=== PATIENT | female | born 1950 | race American Indian/Alaskan Native ===

== ENCOUNTER 2019-06-02 07:22 | Inpatient (IN) | payer MEDICARE ==
[2019-06-02 08:32] LABS: Basophils % (Auto) 0.3 % (0.0-1.8); Eosinophils # (Auto) 0.1 K/mm3 (0.0-0.4); Eosinophils % (Auto) 2.5 % (0.0-4.3); Hematocrit 37.1 % (30.3-42.9); Hemoglobin 12.4 gm/dl (10.1-14.3); Lymphocytes # (Auto) 1.2 K/mm3 (1.2-5.4); Lymphocytes % (Auto) 28.9 % (13.4-35.0); Mean Corpuscular HGB Conc 33 % (30-34); Mean Corpuscular Volume 89 fl (79-97); Monocytes # (Auto) 0.6 K/mm3 (0.0-0.8); Platelet Count 232 K/mm3 (140-440); Red Blood Count 4.18 M/mm3 (3.65-5.03); Red Cell Distribution Width 13.4 % (13.2-15.2)
--- NOTE | 2019-06-02 08:34 | Cat Scan Report ---
CT head/brain wo con INDICATION: neuro deficits <6hrs or sx present upon awakening. TECHNIQUE: Routine CT head without contrast. All CT scans at this location are performed using CT dos e reduction for ALARA by means of automated exposure control. COMPARISON: None. FINDINGS: BRAIN / INTRACRANIAL CONTENTS: Mild generalized volume loss. There is encephalomalacia involving the left frontal lobe with associated ex vacuo dilation of the frontal horn of the left lateral ventricle . There is moderate periventricular and deep cerebral white matter low-attenuation, nonspecific but s uggestive of chronic microvascular ischemic change. No definite acute ischemic change identified, tho ugh assessment is slightly suboptimal given the chronic changes. There is no evidence of hemorrhage, mass effect, or midline shift. ORBITS: No significant abnormality of visualized orbits. SINUSES / MASTOIDS: No significant abnormality of visualized sinuses and mastoid air cells. ADDITIONAL FINDINGS: None. IMPRESSION: 1. Encephalomalacia involving the left frontal lobe, and moderate chronic microvascular ischemic [place]. No definite acute intracranial abnormality identified on noncontrast CT of the brain, though asse ssment is slightly degraded by chronic changes. MRI would be more sensitive for the detection of acut e stroke if clinically warranted. Signer Name: Ute Minaya MD Signed: 06/02/2019 8:29 AM Workstation Name: [email or web address]
--- NOTE | 2019-06-02 08:37 | Emergency Department Report ---
ED Neuro Deficit HPI - General Chief Complaint: Seizure Stated Complaint: SEIZURE Time Seen by Provider: 06/02/19 08:17 Source: patient, family Mode of arrival: Ambulatory Limitations: No Limitations - History of Present Illness Initial Comments: 68-year-old -Welsh female patient with history of hypertension, diabetes, CVA (2016), seizure disorder, HLD, and depression presents complaints of episode of aphasia and right-sided face twitching morning. She states it started around 6:30 AM and the episode lasted for about 5 minutes. She denies any current vision changes, dizziness, headache, chest pain, shortness of breath, numbness/tingling/weakness. Patient does have a chronic speech deficit and mild right-sided weakness due to her prior stroke. She denies any blood thinners or recent head traumas. Patient also complains of right hand dog bite that occurred yesterday. -: Sudden Location: speech, right face History of same: Yes Place: home Severity: severe Worsens With: none On Anticoagulants: No Context: sudden onset Associated Symptoms: denies other symptoms Treatments Prior to Arrival: none - Related Data Home Medications: Home Medications Medication Instructions Recorded Confirmed Last Taken ALBUTEROL Inhaler (OR & NICU) 2 puff IH QID PRN 06/02/19 06/02/19 Unknown [ProAir HFA Inhaler] AtorvaSTATin [Lipitor] 80 mg PO QHS 06/02/19 06/02/19 06/01/19 Escitalopram [Lexapro] 20 mg PO DAILY 06/02/19 06/02/19 Unknown Losartan [Cozaar] 25 mg PO QDAY 06/02/19 06/02/19 Unknown Meloxicam [Mobic] 15 mg PO DAILY 06/02/19 06/02/19 Unknown carvediloL [Coreg] 6.25 mg PO BID 06/02/19 06/02/19 Unknown Previous Rx's Medication Instructions Recorded Last Taken Type Amoxicillin/K Clav Tab [Augmentin 1 each PO Q12HR #14 tablet 06/03/19 Unknown Rx 875MG TAB] Aspirin EC [Halfprin EC] 81 mg PO QDAY tablet 06/03/19 Unknown Rx levETIRAcetam [Keppra TAB] 750 mg PO BID #180 tablet 06/03/19 Unknown Rx Allergies/Adverse Reactions: Allergies Allergy/AdvReac Type Severity Reaction Status Date / Time No Known Allergies Allergy Unverified 06/02/19 07:30 ED Review of Systems ROS: Stated complaint: SEIZURE Other details as noted in HPI Comment: All other systems reviewed and negative Constitutional: denies: chills, fever Eyes: denies: eye pain, vision change ENT: denies: throat pain Respiratory: denies: cough, shortness of breath, wheezing Cardiovascular: denies: chest pain, palpitations Endocrine: no symptoms reported Gastrointestinal: denies: abdominal pain, nausea, diarrhea Genitourinary: denies: dysuria, frequency, hematuria Musculoskeletal: denies: back pain, joint swelling, arthralgia Skin: denies: rash, lesions Neurological: as per HPI Psychiatric: as per HPI ED Past Medical Hx - Past Medical History Previous Medical History?: Yes Hx Hypertension: Yes Hx CVA: Yes Hx Diabetes: Yes Hx Seizures: Yes - Surgical History Past Surgical History?: No - Social History Smoking Status: Never Smoker - Medications Home Medications: Home Medications Medication Instructions Recorded Confirmed Last Taken Type ALBUTEROL Inhaler (OR & NICU) 2 puff IH QID PRN 06/02/19 06/02/19 Unknown History [ProAir HFA Inhaler] AtorvaSTATin [Lipitor] 80 mg PO QHS 06/02/19 06/02/19 06/01/19 History Escitalopram [Lexapro] 20 mg PO DAILY 06/02/19 06/02/19 Unknown History Losartan [Cozaar] 25 mg PO QDAY 06/02/19 06/02/19 Unknown History Meloxicam [Mobic] 15 mg PO DAILY 06/02/19 06/02/19 Unknown History carvediloL [Coreg] 6.25 mg PO BID 06/02/19 06/02/19 Unknown History Amoxicillin/K Clav Tab [Augmentin 1 each PO Q12HR #14 tablet 06/03/19 Unknown Rx 875MG TAB] Aspirin EC [Halfprin EC] 81 mg PO QDAY tablet 06/03/19 Unknown Rx levETIRAcetam [Keppra TAB] 750 mg PO BID #180 tablet 06/03/19 Unknown Rx ED Neuro Physical Exam - General Limitations: No Limitations General appearance: alert, in no apparent distress Suspected Stroke: Yes - Head Head exam: Present: atraumatic, normocephalic - Eye Eye exam: Present: normal appearance, PERRL, EOMI. Absent: scleral icterus - ENT ENT exam: Present: normal exam - Neck Neck exam: Present: normal inspection - Respiratory Respiratory exam: Present: normal lung sounds bilaterally. Absent: respiratory distress - Cardiovascular Cardiovascular Exam: Present: regular rate - GI/Abdominal GI/Abdominal exam: Present: soft, normal bowel sounds. Absent: distended, tenderness, guarding, rebound - Extremities Exam Extremities exam: Present: normal inspection - Back Exam Back exam: Present: normal inspection, full ROM - Neurological Exam Neurological exam: Present: alert, oriented X3. Absent: motor sensory deficit - NIHSS Assessment Interval: Baseline 1a. Level of Consciousness: alert/keenly responsive 1b. LOC Questions: answers both correctly 1c. LOC Commands: performs tasks correctly 2. Best Gaze: normal 3. Visual: no visual loss 4. Facial Palsy: normal symmetrical movement 5b. Motor Arm Right: no drift 5a. Motor Arm Left: no drift 6a. Motor Leg Left: no drift 6b. Motor Leg Right: no drift 7. Limb Ataxia: absent 8. Sensory: normal 9. Best Language: mild/moderate aphasia 10. Dysarthria: normal 11. Extinction/Inattention: no abnormality Total Score: 1 Stroke Severity: Minor Stroke - Psychiatric Psychiatric exam: Present: normal affect, normal mood - Skin Skin exam: Present: warm, dry, intact, normal color. Absent: rash ED Course Vital Signs 06/02/19 06/02/19 06/02/19 07:35 10:00 10:20 Temperature 98.1 F Pulse Rate 73 70 68 Respiratory 16 19 16 Rate Blood Pressure 166/84 149/66 Blood Pressure 165/88 [Right] O2 Sat by Pulse 98 97 98 Oximetry 06/02/19 06/02/19 06/02/19 10:28 10:30 10:40 Temperature Pulse Rate 82 68 66 Respiratory 14 17 14 Rate Blood Pressure 156/69 156/69 Blood Pressure 149/66 [Right] O2 Sat by Pulse 98 97 Oximetry - Lab Data Result diagrams: 06/02/19 08:12 06/02/19 08:12 Lab Results 06/02/19 06/02/19 06/02/19 Range/Units 07:44 08:12 08:12 WBC 4.3 L (4.5-11.0) K/mm3 RBC 4.18 (3.65-5.03) M/mm3 Hgb 12.4 (10.1-14.3) gm/dl Hct 37.1 (30.3-42.9) % MCV 89 (79-97) fl MCH 30 (28-32) pg MCHC 33 (30-34) % RDW 13.4 (13.2-15.2) % Plt Count 232 (140-440) K/mm3 Lymph % (Auto) 28.9 (13.4-35.0) % [place] % (Auto) 15.0 H (0.0-7.3) % Eos % (Auto) 2.5 (0.0-4.3) % Baso % (Auto) 0.3 (0.0-1.8) % Lymph # 1.2 (1.2-5.4) K/mm3 [place] # 0.6 (0.0-0.8) K/mm3 Eos # 0.1 (0.0-0.4) K/mm3 Baso # 0.0 (0.0-0.1) K/mm3 Seg Neutrophils % 53.3 (40.0-70.0) % Seg Neutrophils # 2.3 (1.8-7.7) K/mm3 PT 12.2 (12.2-14.9) Sec. INR 0.91 (0.87-1.13) APTT 28.4 (24.2-36.6) Sec. Thrombin Time (15.1-19.6) Sec. Sodium (137-145) mmol/L Potassium (3.6-5.0) mmol/L Chloride (98-107) mmol/L Carbon Dioxide (22-30) mmol/L Anion Gap mmol/L BUN (7-17) mg/dL Creatinine (0.7-1.2) mg/dL Estimated GFR ml/min BUN/Creatinine Ratio % Glucose (65-100) mg/dL POC Glucose 123 H (70-105) Calcium (8.4-10.2) mg/dL Magnesium (1.7-2.3) mg/dL Troponin T (0.00-0.029) ng/mL 06/02/19 06/02/19 06/02/19 Range/Units 08:12 08:12 08:21 WBC (4.5-11.0) K/mm3 RBC (3.65-5.03) M/mm3 Hgb (10.1-14.3) gm/dl Hct (30.3-42.9) % MCV (79-97) fl MCH (28-32) pg MCHC (30-34) % RDW (13.2-15.2) % Plt Count (140-440) K/mm3 Lymph % (Auto) (13.4-35.0) % [place] % (Auto) (0.0-7.3) % Eos % (Auto) (0.0-4.3) % Baso % (Auto) (0.0-1.8) % Lymph # (1.2-5.4) K/mm3 [place] # (0.0-0.8) K/mm3 Eos # (0.0-0.4) K/mm3 Baso # (0.0-0.1) K/mm3 Seg Neutrophils % (40.0-70.0) % Seg Neutrophils # (1.8-7.7) K/mm3 PT (12.2-14.9) Sec. INR (0.87-1.13) APTT (24.2-36.6) Sec. Thrombin Time 17.1 (15.1-19.6) Sec. Sodium 138 (137-145) mmol/L Potassium 4.4 (3.6-5.0) mmol/L Chloride 103.7 (98-107) mmol/L Carbon Dioxide 24 (22-30) mmol/L Anion Gap 15 mmol/L BUN 30 H (7-17) mg/dL Creatinine 1.2 (0.7-1.2) mg/dL Estimated GFR 45 ml/min BUN/Creatinine Ratio 25 % Glucose 138 H (65-100) mg/dL POC Glucose (70-105) Calcium 9.2 (8.4-10.2) mg/dL Magnesium 1.90 (1.7-2.3) mg/dL Troponin T < 0.010 (0.00-0.029) ng/mL - Radiology Data Radiology results: report reviewed CT head/brain wo con INDICATION: neuro deficits <6hrs or sx present upon awakening. TECHNIQUE: Routine CT head without contrast. All CT scans at this location are performed using CT dose reduction for ALARA by means of automated exposure control. COMPARISON: None. FINDINGS: BRAIN / INTRACRANIAL CONTENTS: Mild generalized volume loss. There is encephalomalacia involving the left frontal lobe with associated ex vacuo dilation of the frontal horn of the left lateral ventricle. There is moderate periventricular and deep cerebral white matter low-attenuation, nonspecific but suggestive of chronic microvascular ischemic change. No definite acute ischemic change identified, though assessment is slightly suboptimal given the chronic changes. There is no evidence of hemorrhage, mass effect, or midline shift. ORBITS: No significant abnormality of visualized orbits. SINUSES / MASTOIDS: No significant abnormality of visualized sinuses and mastoid air cells. ADDITIONAL FINDINGS: None. IMPRESSION: 1. Encephalomalacia involving the left frontal lobe, and moderate chronic m icrovascular ischemic change. No definite acute intracranial abnormality identified on noncontrast CT of the brain, though assessment is slightly degraded by chronic changes. MRI would be more sensitive for the detection of acute stroke if clinically warranted. Signer Name: Ute Minaya MD Signed: 06/02/2019 8:29 AM Workstation Name: [id number] - Medical Decision Making 68-year-old -Welsh female patient with history of CVA and chronic speech deficit due to her stroke resents for a five-minute episode of inability to speak and right facial twitching this morning. Labs are without acute findings. Neuro exam is normal here in ED. CT head does not show any acute findings. We suffered from a TIA. Patient to be admitted to hospital medicine for further evaluation. - Core Measures Measure Exclusions: not indicated - Thrombolytic Inclusion/Exclusion Thrombolytic Exclusion Criteria: Symptom Onset > 3 Hours Thrombolytic Inclusion Criteria: NIH Stroke Scale Deficit, Negative CT Scan for ICH Thrombolytic Contraindications: Rapidily Improving s/s Critical Care Time: Yes Critical care time in (mins) excluding proc time.: 32 Critical care attestation.: If time is entered above; I have spent that time in minutes in the direct care of this critically ill patient, excluding procedure time. ED Disposition Clinical Impression: TIA (transient ischemic attack) Disposition: -09 OP ADMIT IP TO THIS HOSP Is pt being admited?: Yes Does the pt Need Aspirin: No Condition: Stable
[2019-06-02 08:42] LABS: INR 0.91 (0.87-1.13)
[2019-06-02] MEDS ORDERED: TETANUS,DIPH,PERTUSS(ACELL) VACCINE 0.5 ML SYRINGE IM ONE (08:42)
[2019-06-02 08:43] LABS: BUN/Creatinine Ratio 25; Blood Urea Nitrogen 30 mg/dL (7-17); Calcium 9.2 mg/dL (8.4-10.2); Hemolysis Index 0; Partial Thromboplastin Time 28.4 Sec. (24.2-36.6)
[2019-06-02] MEDS: AMOXICILLIN/K CLAV 875/125MG TAB PO SCH ×3 (09:08→22:16)
--- NOTE | 2019-06-02 10:38 | History and Physical Report ---
History of Present Illness Date of admission: 06/02/19 08:53 Chief complaint: She could not speak and she was twitching History of present illness: 68-year-old woman with history of hypertension diabetes CVA seizure disorder hyperlipidemia and depression who presents to the hospital with episodes of complete aphasia and right-sided twitching this morning. Started around 6:30 in the morning and lasted approximately 5 minutes. Has since resolved and has not come back. She does have a history of previous stroke with chronic speech deficit and very mild right-sided weakness. -Of note the patient has a history of seizures, per the family they believe it was a seizure. She was supposed to be on Keppra at home but has not taking it in many months. Past medical history; hypertension, diabetes, CVA, seizure, hyperlipidemia, depression, Past surgical history, denies major surgeries Social history, never smoker, denies illicit drugs or alcohol abuse Family history; stroke Medications and Allergies Allergies Allergy/AdvReac Type Severity Reaction Status Date / Time No Known Allergies Allergy Unverified 06/02/19 07:30 Home Medications Medication Instructions Recorded Confirmed Last Taken Type ALBUTEROL Inhaler (OR & NICU) 2 puff IH QID PRN 06/02/19 06/02/19 Unknown History [ProAir HFA Inhaler] AtorvaSTATin [Lipitor] 80 mg PO QHS 06/02/19 06/02/19 06/01/19 History Escitalopram [Lexapro] 20 mg PO DAILY 06/02/19 06/02/19 Unknown History Losartan [Cozaar] 25 mg PO QDAY 06/02/19 06/02/19 Unknown History Meloxicam [Mobic] 15 mg PO DAILY 06/02/19 06/02/19 Unknown History carvediloL [Coreg] 6.25 mg PO BID 06/02/19 06/02/19 Unknown History Active Meds: Active Medications Acetaminophen (Tylenol) 650 mg PO Q4H PRN PRN Reason: Pain, Mild (1-3) Amoxicillin/Clavulanate Potassium (Augmentin 875 Mg) 1 each PO BID [facility] Last Admin: 06/02/19 10:12 Dose: Not Given Documented by: Atorvastatin Calcium (Lipitor) 80 mg PO QHS JACQUES Bisacodyl (Dulcolax) 10 mg AL QDAY PRN PRN Reason: Constipation Dextrose (D50w (25gm) Syringe) 50 ml IV Q30MIN PRN; Protocol PRN Reason: Hypoglycemia Escitalopram Oxalate (Lexapro) 20 mg PO DAILY [facility] Insulin Human Lispro (Humalog) 0 unit SUB-Q ACHS JACQUES; Protocol Magnesium Hydroxide (Milk Of Magnesia) 30 ml PO Q4H PRN PRN Reason: Constipation Miscellaneous Medication (Meloxicam [Mobic]) 15 mg PO DAILY [facility]ACQUES Ondansetron HCl (Zofran) 4 mg IV Q8H PRN PRN Reason: Nausea And Vomiting Promethazine HCl (Phenergan) 25 mg AL Q6H PRN PRN Reason: Nausea And Vomiting Sodium Chloride (Sodium Chloride Flush Syringe 10 Ml) 10 ml INJ PRN PRN PRN Reason: LINE FLUSH Review of Systems All systems: negative Constitutional: no anorexia Ears, nose, mouth and throat: no ear pain Cardiovascular: no chest pain Respiratory: no cough Gastrointestinal: no nausea Rectal: no pain Musculoskeletal: no neck stiffness Integumentary: no rash Neurological: no head injury Psychiatric: no anxiety Endocrine: no cold intolerance Hematologic/Lymphatic: no easy bruising Allergic/Immunologic: no urticaria Exam - Constitutional Vitals: Temp Pulse Resp BP Pulse Ox 98.1 F 82 14 149/66 98 06/02/19 07:35 06/02/19 10:28 06/02/19 10:28 06/02/19 10:28 06/02/19 10:28 General appearance: Present: no acute distress, well-nourished - EENT Eyes: Present: PERRL ENT: hearing intact, clear oral mucosa - Neck Neck: Present: supple, normal ROM - Respiratory Respiratory effort: normal Respiratory: bilateral: CTA - Cardiovascular Heart Sounds: Present: S1 & S2. Absent: rub, click - Extremities Extremities: pulses symmetrical, No edema Peripheral Pulses: within normal limits - Abdominal General gastrointestinal: Present: soft, non-tender, non-distended, normal bowel sounds Female genitourinary: Present: normal - Integumentary Integumentary: Present: clear, warm, dry - Musculoskeletal Musculoskeletal: right sided weakness (mild), other (Expressive aphasia) - Psychiatric Psychiatric: appropriate mood/affect - Neurologic Neurologic: CNII-XII intact, moves all extremities Results - Labs CBC & Chem 7: 06/02/19 08:12 06/02/19 08:12 Labs: Laboratory Last Values WBC 4.3 K/mm3 (4.5-11.0) L 06/02/19 08:12 RBC 4.18 M/mm3 (3.65-5.03) 06/02/19 08:12 Hgb 12.4 gm/dl (10.1-14.3) 06/02/19 08:12 Hct 37.1 % (30.3-42.9) 06/02/19 08:12 MCV 89 fl (79-97) 06/02/19 08:12 MCH 30 pg (28-32) 06/02/19 08:12 MCHC 33 % (30-34) 06/02/19 08:12 RDW 13.4 % (13.2-15.2) 06/02/19 08:12 Plt Count 232 K/mm3 (140-440) 06/02/19 08:12 Lymph % (Auto) 28.9 % (13.4-35.0) 06/02/19 08:12 [place] % (Auto) 15.0 % (0.0-7.3) H 06/02/19 08:12 Eos % (Auto) 2.5 % (0.0-4.3) 06/02/19 08:12 Baso % (Auto) 0.3 % (0.0-1.8) 06/02/19 08:12 Lymph # 1.2 K/mm3 (1.2-5.4) 06/02/19 08:12 [place] # 0.6 K/mm3 (0.0-0.8) 06/02/19 08:12 Eos # 0.1 K/mm3 (0.0-0.4) 06/02/19 08:12 Baso # 0.0 K/mm3 (0.0-0.1) 06/02/19 08:12 Seg Neutrophils % 53.3 % (40.0-70.0) 06/02/19 08:12 Seg Neutrophils # 2.3 K/mm3 (1.8-7.7) 06/02/19 08:12 PT 12.2 Sec. (12.2-14.9) 06/02/19 08:12 INR 0.91 (0.87-1.13) 06/02/19 08:12 APTT 28.4 Sec. (24.2-36.6) 06/02/19 08:12 Thrombin Time 17.1 Sec. (15.1-19.6) 06/02/19 08:12 Sodium 138 mmol/L (137-145) 06/02/19 08:12 Potassium 4.4 mmol/L (3.6-5.0) 06/02/19 08:12 Chloride 103.7 mmol/L (98-107) 06/02/19 08:12 Carbon Dioxide 24 mmol/L (22-30) 06/02/19 08:12 Anion Gap 15 mmol/L 06/02/19 08:12 BUN 30 mg/dL (7-17) H 06/02/19 08:12 Creatinine 1.2 mg/dL (0.7-1.2) 06/02/19 08:12 Estimated GFR 45 ml/min 06/02/19 08:12 BUN/Creatinine Ratio 25 % 06/02/19 08:12 Glucose 138 mg/dL (65-100) H 06/02/19 08:12 POC Glucose 123 (70-105) H 06/02/19 07:44 Calcium 9.2 mg/dL (8.4-10.2) 06/02/19 08:12 Magnesium 1.90 mg/dL (1.7-2.3) 06/02/19 08:21 Troponin T < 0.010 ng/mL (0.00-0.029) 06/02/19 08:12 - Imaging and Cardiology CT Scan - head: image reviewed (No acute findings) Assessment and Plan Assessment and plan: 68-year-old woman who presents to the hospital after an episode of aphasia and right facial twitching that lasted approximately 5 minutes Status epilepticus As the patient has not been compliant with her Keppra at home, has not filled a prescription in many months. It appears that she may have had a partial seizure Case discussed with neurologist, restart her on Keppra, still need to rule out ischemic event such as stroke or TIA Possible TIA? Acue CVA Tele- neurology input appreciated, neurology consulted, Allow permissive hypertension, has received aspirin, stroke education, observe for arrhythmia on telemetry, -neurology consult --aspirin and high dose statin, check Lipid panel MRI brain, carotid Dopplers, echo Bedside swallow evaluation was normal Hypertensive urgency, allowing permissive hypertension Diabetes is documented in the chart, The patient denies having diabetes. Will obtain A1c, sliding scale for now DVT prophylaxis with SCDs. VTE prophylaxis?: Mechanical
[2019-06-02] MEDS ORDERED: DEXTROSE 50% IN WATER (25GM) 50 ML SYRINGE IV PRN (11:30)
[2019-06-02] MEDS ORDERED: ONDANSETRON 4 MG/2 ML INJ IV PRN (11:30)
[2019-06-02] MEDS ORDERED: PROMETHAZINE 25 MG RECT SUPP PR PRN (11:30)
[2019-06-02] MEDS ORDERED: ACETAMINOPHEN 325 MG TAB PO PRN (11:30)
[2019-06-02] MEDS ORDERED: MAGNESIUM HYDROXIDE (MOM) ORAL LIQD UDC PO PRN (11:30)
--- NOTE | 2019-06-02 12:32 | Vascular Lab Report ---
"DUPLEX DOPPLER ULTRASOUND CAROTID, BILATERAL INDICATION: stroke. TIA, history of diabetes and hypertension. FINDINGS: RIGHT CAROTID: Mild atherosclerotic plaque Right CCA velocity: 110 cm/sec. Right ICA peak systolic velocity: 76 cm/sec. ICA/CCA PSV Ratio: 0.9. Right Vertebral Artery: Antegrade flow. LEFT CAROTID: Mild atherosclerotic plaque Left CCA velocity: 95 cm/sec. Left ICA peak systolic velocity: 68 cm/sec. ICA/CCA PSV Ratio: 0.7. Left Vertebral Artery: Antegrade flow. IMPRESSION: 1. Right Internal Carotid Artery: Less than 50% diameter stenosis. 2. Left Internal Carotid Artery: Less than 50% diameter stenosis. Velocity criteria are extrapolated from diameter data as defined by the Society of Radiologists in Ul trasound Consensus Conference, Radiology 2003; 229;340-346. Degree of Stenosis (%) || ICA PSV (cm/sec) || Plaque estimate (%) || ICA/CCA PSV Ratio Normal <125 None <2.0 <50 <125 <50 <2.0 50-69 125-230 50 2.0-4.0 70 but less than 100 >230 50 >4.0 Near occlusion High, low, or none visible variable Total occlusion None visible; no lumen N/A Signer Name: Linus Alcazar MD Signed: 06/02/2019 12:27 PM Workstation Name: [id number]
--- NOTE | 2019-06-02 12:37 | Consultation ---
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 This morning at about 6:30, patient noted that she had sudden inability to speak, as well as right eye twitching which lasted about 5 minutes. During the episode, patient had loss of bladder control. No tongue biting, and no post-ictal confusion. She had a seizure previously, and had been started on keppra, however has not been taking keppra for past few months. She is not aware when she stopped taking it. Past History Past Medical History: other (h/o stroke w/ residual aphasia and RLE weakness, HLD, depression, HTN, h/o seizures) Social history: lives with family Family history: no significant family history Medications and Allergies Allergies Allergy/AdvReac Type Severity Reaction Status Date / Time No Known Allergies Allergy Unverified 06/02/19 07:30 Home Medications Medication Instructions Recorded Confirmed Last Taken Type ALBUTEROL Inhaler (OR & NICU) 2 puff IH QID PRN 06/02/19 06/02/19 Unknown History [ProAir HFA Inhaler] AtorvaSTATin [Lipitor] 80 mg PO QHS 06/02/19 06/02/19 06/01/19 History Escitalopram [Lexapro] 20 mg PO DAILY 06/02/19 06/02/19 Unknown History Losartan [Cozaar] 25 mg PO QDAY 06/02/19 06/02/19 Unknown History Meloxicam [Mobic] 15 mg PO DAILY 06/02/19 06/02/19 Unknown History carvediloL [Coreg] 6.25 mg PO BID 06/02/19 06/02/19 Unknown History Active Meds: Active Medications Acetaminophen (Tylenol) 650 mg PO Q4H PRN PRN Reason: Pain, Mild (1-3) Amoxicillin/Clavulanate Potassium (Augmentin 875 Mg) 1 each PO BID [facility] Last Admin: 06/02/19 10:12 Dose: Not Given Documented by: Atorvastatin Calcium (Lipitor) 80 mg PO QHS [facility] Bisacodyl (Dulcolax) 10 mg GA QDAY PRN PRN Reason: Constipation Dextrose (D50w (25gm) Syringe) 50 ml IV Q30MIN PRN; Protocol PRN Reason: Hypoglycemia Escitalopram Oxalate (Lexapro) 20 mg PO DAILY [facility] Insulin Human Lispro (Humalog) 0 unit SUB-Q ACHS [facility]; Protocol Magnesium Hydroxide (Milk Of Magnesia) 30 ml PO Q4H PRN PRN Reason: Constipation Meloxicam (Mobic) 15 mg PO QDAY [facility] Ondansetron HCl (Zofran) 4 mg IV Q8H PRN PRN Reason: Nausea And Vomiting Promethazine HCl (Phenergan) 25 mg GA Q6H PRN PRN Reason: Nausea And Vomiting Sodium Chloride (Sodium Chloride Flush Syringe 10 Ml) 10 ml IV PRN PRN PRN Reason: LINE FLUSH Review of Systems All systems: negative Neurological: aphasia, other (right eye twitching) Physical Examination - Vital Signs Vital Signs: Vital Signs Temp Pulse Resp BP Pulse Ox 98.1 F 73 16 165/88 98 06/02/19 07:35 06/02/19 07:35 06/02/19 07:35 06/02/19 07:35 06/02/19 07:35 - Physical Exam Narrative exam: Patient is alert, awake, oriented x4. Follows complex commands. No dysarthria noted. Noted to have significant aphasia, which is her baseline. PERRL, EOMI, VFF, no facial weakness noted, tongue midline, b/l intact to LT. 5/5 strength in RUE/LUE/LLE, 4/5 in RLE. Decreased in RLE to LT. Intact to FTN, dysmetria on on HTS b/l. 3+ in RLE, 2+ reflexes in remainder of extremities. - Constitutional General appearance: comfortable - EENT EENT: Present: ATNC, PERRL, mucous membranes moist, hearing intact, vision intact - Respiratory Respiratory: Present: lungs clear, normal breath sounds - Cardiovascular Cardiovascular: Present: regular rate, normal S1, normal S2 Extremities: Present: no clubbing, cyanosis, no inflammation - Gastrointestinal Gastrointestinal: Present: normoactive bowel sounds, soft, non-tender - Integumentary Integumentary: Present: normal - Musculoskeletal Musculoskeletal: Present: no fluid collection, no pain - Psychiatric Psychiatric: Present: mood/affect appropriate Results - Laboratory Findings CBC and BMP: 06/02/19 08:12 06/02/19 08:12 Abnormal Lab Findings: Abnormal Labs 06/02/19 06/02/19 06/02/19 07:44 08:12 08:12 WBC 4.3 L Tucker % (Auto) 15.0 H BUN 30 H Glucose 138 H POC Glucose 123 H Assessment and Plan Patient is a 68 y/o woman w/ a h/o stroke w/ residual aphasia and RLE weakness, HLD, depression, HTN, h/o seizures, who p/w aphasia and right eye twitching. According to the patient's clinical findings, it is likely that she has had a partial seizure. Alternatively, she may have had a stroke or TIA. Plan: 1. Seizure vs. TIA. vs. Stroke: - Restart patient on keppra 750mg BID, as she has not been taking this. - Check MRI brain - Check UA - Cont. patient on statin, which she takes at home - Telemetry monitoring while in house - Dvt Ppx: Recommend lovenox 2. Hypertension: - Recommend target BP or normotension, as symtpoms have resolved. - - Will sign off, as I am not covering neurology service over the weekend. Please consult neurologist covering weekend for further neurologic management a nd monitoring. Thank you for allowing me to take part in the care of this patient.
[2019-06-02] MEDS ORDERED: levETIRAcetam 500 MG/5 ML ORAL LIQD PO ONE (12:53)
[2019-06-02] MEDS: INSULIN LISPRO 100 UNIT/ML SUB-Q SCH ×3 (15:57→22:00)
[2019-06-02] MEDS: MELOXICAM 7.5 MG TAB PO SCH (16:34)
[2019-06-02] MEDS: levETIRAcetam 500 MG TAB PO SCH (22:17)
[2019-06-03 05:21] LABS: Chol/HDL Ratio 2.05 %
[2019-06-03 07:01] LABS: Bilirubin,Urine NEG (Negative); Blood,Urine NEG (Negative); Color,Urine Yellow (Yellow); Mucus,Urine FEW /HPF; Protein,Urine <15 mg/dL mg/dL (Negative); Urobilinogen,Urine < 2.0 mg/dL (<2.0)
[2019-06-03] MEDS: INSULIN LISPRO 100 UNIT/ML SUB-Q SCH ×3 (08:12→16:17)
--- NOTE | 2019-06-03 08:23 | XRay Report ---
RIGHT HAND 3 VIEWS INDICATION / CLINICAL INFORMATION: R hand swelling after dog bite COMPARISON: None available. FINDINGS: BONES / JOINT(S): No acute fracture or subluxation. No significant arthritis. SOFT TISSUES: There appears to be soft tissue swelling of the index finger. ADDITIONAL FINDINGS: No radiopaque foreign bodies are seen. Signer Name: Andrea Walker MD Signed: 06/03/2019 8:19 AM Workstation Name: [id number]
[2019-06-03] MEDS ORDERED: NON-FORMULARY EACH (Meloxicam [Mobic] 15 MG) PO SCH (10:00)
[2019-06-03] MEDS ORDERED: ESCITALOPRAM 10 MG TAB PO SCH (10:00)
[2019-06-03] MEDS ORDERED: ASPIRIN EC 81 MG TAB PO SCH (10:00)
[2019-06-03] MEDS: MELOXICAM 7.5 MG TAB PO SCH (10:27)
[2019-06-03] MEDS: AMOXICILLIN/K CLAV 875/125MG TAB PO SCH (10:27)
[2019-06-03] MEDS: levETIRAcetam 500 MG TAB PO SCH (10:27)
--- NOTE | 2019-06-03 11:21 | Magnetic Resonance Report ---
MRI BRAIN WITHOUT CONTRAST INDICATION / CLINICAL INFORMATION: stroke. TECHNIQUE: Multiplanar, multisequence MR images of the brain were obtained. COMPARISON: None available. FINDINGS: BRAIN / INTRACRANIAL CONTENTS: There is notable encephalomalacia involving the left frontal lobe incl uding the operculum compatible with old infarct. 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 There is associated mild ex vacuo dilatation of the anterior left lateral ventricle. There is otherwise extensive cerebral white matter disease most consistent with microvascular angiopa thy. Smaller old infarcts are seen involving the left parietal lobe as well as the right brooks radia ta. The diffusion imaging reveals no clear evidence of acute infarction. CRANIOCERVICAL JUNCTION: No significant abnormality. VASCULAR FLOW-VOIDS: The distal internal carotid arteries and vertebrobasilar system grossly demonstr ate appropriate signal void set. ORBITS: No significant abnormality of visualized orbits. SINUSES / MASTOIDS: There is mild mucosal thickening involving the ethmoid and left maxillary sinuses . ADDITIONAL FINDINGS: None. IMPRESSION: 1. There are old infarcts involving left frontal lobe and basal ganglia as detailed above with enceph alomalacia. 2. There is otherwise extensive microvascular angiopathy without evidence of acute infarction. Signer Name: Alexis Asif MD Signed: 06/03/2019 11:17 AM Workstation Name: [id number]
--- NOTE | 2019-06-03 11:25 | Magnetic Resonance Report ---
MR MRA/MRV head wo con INDICATION / CLINICAL INFORMATION: 68 years Female; stroke. TECHNIQUE: 3-D time of flight. NASCET type criteria used to evaluate stenoses. COMPARISON: None available. FINDINGS: INTERNAL CAROTID ARTERIES: No significant narrowing appreciated. VERTEBROBASILAR SYSTEM: No significant narrowing appreciated. DISTAL BRANCHES: There is an old infarct involving left frontal lobe and basal ganglia with notable e ncephalomalacia. There is relative paucity of vessels are within this region. There is no significant focal stenosis involving the proximal cerebral arteries at. ANEURYSM: There is incidental infundibulum along the distal right basilar artery. There is no clear M RA evidence of intracranial aneurysm. IMPRESSION: There is an old infarct involving the left frontal lobe and basal ganglia with encephalomalacia. Othe rwise, there is no significant focal stenosis involving the visualized intracranial vessels at. Signer Name: Alexis Asif MD Signed: 06/03/2019 11:21 AM Workstation Name: [id number]
--- NOTE | 2019-06-03 12:19 | Discharge Summary ---
Providers - Providers Date of Admission: 06/02/19 08:53 Attending physician: WILEY ROYAL MD 06/02/19 Consult to Physician [CONS] Routine Comment: Consulting Provider: ISHAAN ODONNELL Physician Instructions: Reason For Exam: tia? 06/02/19 10:30 Consult to Dietitian/Nutrition [CONS] Routine Physician Instructions: Reason For Exam: Reason for Consult: Diet education Occupational Therapy Evaluate and Treat [CONS] Routine Comment: Reason For Exam: Neuro deficits Physical Therapy Evaluation and Treat [CONS] Routine Comment: Reason For Exam: Neuro deficits Primary care physician: GABI NOLAND Hospitalization Condition: Stable Disposition: DC-30 STILL A PATIENT Exam - Constitutional Vitals: Temp Pulse Resp BP Pulse Ox 97.9 F 61 18 140/69 97 06/03/19 07:26 06/03/19 11:00 06/03/19 11:00 06/03/19 07:26 06/03/19 11:00 Plan Follow up with: GABI NOLAND MD [Primary Care Provider] - 7 Days Prescriptions: Amoxicillin/K Clav Tab [Augmentin 875MG TAB] 1 each PO Q12HR #14 tablet levETIRAcetam [Keppra TAB] 750 mg PO BID #180 tablet
[2019-06-03 13:28] VITALS: BP 151/78
== END 2019-06-03 17:08 | disposition home health service (06) | DRG 101 ==
LOC: ED 07:22 → 2B-ACE 08:53
PROVIDERS: ADMIT Internal Medicine; ATTEND Internal Medicine
PROC: 3E0234Z Introduction of Serum, Toxoid and Vaccine into Muscle, Percutaneous Approach (ICD-10-PCS; principal; 2019-06-02)
DX: G40.901 Epilepsy, unspecified, not intractable, with status epilepticus (principal); G81.91 Hemiplegia, unspecified affecting right dominant side; R47.01 Aphasia; F32.9 Major depressive disorder, single episode, unspecified; I10 Essential (primary) hypertension; M79.89 Other specified soft tissue disorders; E11.9 Type 2 diabetes mellitus without complications; I16.0 Hypertensive urgency; R29.701 NIHSS score 1; Z79.899 Other long term (current) drug therapy; Z23 Encounter for immunization; W54.0XXA Bitten by dog, initial encounter; Y93.89 Activity, other specified; Y92.89 Other specified places as the place of occurrence of the external cause; Y99.8 Other external cause status; Z82.3 Family history of stroke
CPT/HCPCS: 36415; 70450; 70544; 70551; 80048; 80061; 81001; 82962; 83036; 83735; 84484; 85025; 85610; 85670; 85730; 87086; 90471; 90715; 93005; 93010; 93306; 93880; G0378; A9270-GY

== ENCOUNTER 2021-04-14 05:55 | Observation (INO) | payer MEDICARE ==
[2021-04-14] MEDS ORDERED: levETIRAcetam 1000 MG/NS 0.75% 1,000 MG/100 ML BAG IV ONE (06:01)
[2021-04-14] MEDS ORDERED: LORazepam 2 MG/ML VIAL ONE (06:42)
[2021-04-14] MEDS ORDERED: LORazepam 2 MG/ML VIAL IV ONE (06:56)
--- NOTE | 2021-04-14 07:08 | Emergency Department Report ---
ED Seizure HPI - General Stated Complaint: SEIZURE Time Seen by Provider: 04/14/21 06:12 - History of Present Illness Initial Comments: 70-year-old female, history of seizure disorder, CVA, presents to ED with active seizure. Patient was transported by daughter in private vehicle. Spoke with patient's daughter. She states patient has had 2 seizures in the past. States they are usually partial seizures, only causing some facial twitching. States s he believes patient has been compliant with her Keppra, but she is not completely sure. Daughter reports that patient came into her room at around 5 AM due to her seizure. She states she was barely able to walk but she had some facial twitching and grunting. Daughter then put patient into the car and drove her to the ER. armed security guard helped daughter get patient out of the car. armed security guard and daughter report patient seemed to have more generalized seizure activity at this time. Daughter states patient seizures have never been this bad. Once placed on the stretcher, patient had snoring respirations, some slight right-sided facial twitching, and right gaze deviation. Patient was t achycardic at this time. Ativan 2 mg was given. Patient is currently postictal and heart rate has improved. MD Complaint: seizure -: minutes(s) (5) Description of Episode: loss of consciousness, tonic-clonic movement Witnessed:: Yes Seizure History: known seizure disorder Treatments Prior to Arrival: none - Related Data Home Medications Medication Instructions Recorded Confirmed Last Taken Albuterol Mdi (or & Nicu Only) 2 puff IH QID PRN 06/02/19 06/02/19 Unknown [ProAir HFA Inhaler] AtorvaSTATin [Lipitor] 80 mg PO QHS 06/02/19 06/02/19 06/01/19 Escitalopram [Lexapro] 20 mg PO DAILY 06/02/19 06/02/19 Unknown Losartan [Cozaar] 25 mg PO QDAY 06/02/19 06/02/19 Unknown Meloxicam [Mobic] 15 mg PO DAILY 06/02/19 06/02/19 Unknown carvediloL [Coreg] 6.25 mg PO BID 06/02/19 06/02/19 Unknown Previous Rx's Medication Instructions Recorded Last Taken Type Amoxicillin/K Clav Tab [Augmentin 1 each PO Q12HR #14 tablet 06/03/19 Unknown Rx 875MG TAB] Aspirin EC [Halfprin EC] 81 mg PO QDAY tablet 06/03/19 Unknown Rx levETIRAcetam [Keppra TAB] 750 mg PO BID #180 tablet 06/03/19 Unknown Rx Allergies Allergy/AdvReac Type Severity Reaction Status Date / Time No Known Allergies Allergy Unverified 06/02/19 07:30 ED Review of Systems ROS: Stated complaint: SEIZURE Other details as noted in HPI Comment: Unobtainable due to pts medical conditions ED Past Medical Hx - Past Medical History Hx Hypertension: Yes Hx CVA: Yes Hx Diabetes: Yes Hx Seizures: Yes - Social History Smoking Status: Never Smoker - Medications Home Medications: Home Medications Medication Instructions Recorded Confirmed Last Taken Type Albuterol Mdi (or & Nicu Only) 2 puff IH QID PRN 06/02/19 06/02/19 Unknown History [ProAir HFA Inhaler] AtorvaSTATin [Lipitor] 80 mg PO QHS 06/02/19 06/02/19 06/01/19 History Escitalopram [Lexapro] 20 mg PO DAILY 06/02/19 06/02/19 Unknown History Losartan [Cozaar] 25 mg PO QDAY 06/02/19 06/02/19 Unknown History Meloxicam [Mobic] 15 mg PO DAILY 06/02/19 06/02/19 Unknown History carvediloL [Coreg] 6.25 mg PO BID 06/02/19 06/02/19 Unknown History Amoxicillin/K Clav Tab [Augmentin 1 each PO Q12HR #14 tablet 06/03/19 Unknown Rx 875MG TAB] Aspirin EC [Halfprin EC] 81 mg PO QDAY tablet 06/03/19 Unknown Rx levETIRAcetam [Keppra TAB] 750 mg PO BID #180 tablet 06/03/19 Unknown Rx ED Physical Exam - General General appearance: obtunded - Head Head exam: Present: atraumatic, normocephalic - Eye Eye exam: Present: normal appearance Pupils: Present: other (Pinpoint bilaterally) - ENT ENT exam: Present: mucous membranes moist - Neck Neck exam: Present: normal inspection - Respiratory Respiratory exam: Present: normal lung sounds bilaterally. Absent: respiratory distress - Cardiovascular Cardiovascular Exam: Present: normal rhythm, tachycardia - GI/Abdominal GI/Abdominal exam: Present: soft. Absent: distended, tenderness - Extremities Exam Extremities exam: Present: normal inspection - Neurological Exam Neurological exam: Present: altered - Skin Skin exam: Present: warm, dry, intact, normal color ED Course Vital Signs 04/14/21 04/14/21 04/14/21 06:16 07:01 07:15 Temperature 94.7 F L Pulse Rate 113 H 107 H 107 H Respiratory 21 19 21 Rate Blood Pressure 218/117 134/76 111/71 Blood Pressure 111/71 [Right] O2 Sat by Pulse 99 98 98 Oximetry 04/14/21 04/14/21 04/14/21 07:31 07:45 08:01 Temperature Pulse Rate 105 H 105 H 102 H Respiratory 18 19 19 Rate Blood Pressure 112/65 111/71 135/78 Blood Pressure [Right] O2 Sat by Pulse 98 99 100 Oximetry - Reevaluation(s) Reevaluation #1: 04/14/21 07:[address], patient noted to have some tongue fasciculations and right facial twitching. Another 2 mg Ativan was given. Reevaluation #2: 04/14/21 08:47 Mental status slightly improved. Patient slowly opening eyes to voice. She then drifts back to sleep. She is not responding verbally at this time. Reevaluation #3: 04/14/21 10:12 Patient is more arousable, but still somewhat lethargic. She is able to follow commands, lifting both arms and both legs for me. Patient is shaking her head yes and no to questions. Speech is very slurred and incomprehensible. I spoke with patient's daughter who reports that patient has residual right-sided weakness from her previous stroke. States her speech is usually clear, but her words are mixed up. Patient still not at her baseline. Due to prolonged postictal state, will admit to hospitalist. ED Medical Decision Making - Lab Data Result diagrams: 04/14/21 07:04 04/14/21 07:04 - EKG Data -: EKG Interpreted by Me EKG shows normal: sinus rhythm, axis, intervals, QRS complexes, ST-T waves Rate: tachycardia (rate 115) - EKG Data Interpretation: no acute changes - Radiology Data Radiology results: report reviewed, image reviewed - Medical Decision Making 70-year-old female since to ED with seizure, worse than her usual seizures according to patient's daughter. Patient has history of seizure disorder which usually consists facial twitching. Today it seems as if it became somewhat generalized. Patient has history of prior CVA with some residual right-sided weakness and speech deficits. Here in the ED patient received a total of 4 mg o f Ativan, along with Keppra [address] head negative for any acute findings. Labs unremarkable except for mild metabolic acidosis which is likely secondary to her seizure. Renal insufficiency remains unchanged compared to previous visit. Mental status has improved throughout ED stay. Patient able to follow commands but is still pretty lethargic and her speech remains somewhat unintelligible. Patient is able to lift her arms and legs equally. Due to prolonged postictal state, will admit to hospitalist. Patient will be admitted to Dr. Reyes. - Differential Diagnosis CVA, seizure, electrolyte abnormality Critical care attestation.: If time is entered above; I have spent that time in minutes in the direct care of this critically ill patient, excluding procedure time. ED Disposition Clinical Impression: Seizure, Postictal state Disposition: ADMITTED INPATIENT Is pt being admited?: Yes Condition: Stable Time of Disposition: 10:22
--- NOTE | 2021-04-14 07:08 | Cat Scan Report ---
CT HEAD WITHOUT CONTRAST INDICATION / CLINICAL INFORMATION: seizure. TECHNIQUE: All CT scans at this location are performed using CT dose reduction for ALARA by means of automated e xposure control. COMPARISON: Head CT 05/23/2019 FINDINGS: HEMORRHAGE: None. EXTRA-AXIAL SPACES: Normal in size and morphology for the patient's age. VENTRICULAR SYSTEM: Normal in size and morphology for the patient's age. CEREBRAL PARENCHYMA: Encephalomalacia left MCA distribution from remote infarct, unchanged. Severe pe riventricular and deep white matter microangiopathy. No significant abnormality. No acute territorial infarct. MIDLINE SHIFT OR HERNIATION: None. CEREBELLUM / BRAINSTEM: No significant abnormality. ORBITS: Normal as visualized. SOFT TISSUES of HEAD: No significant abnormality. CALVARIUM: No significant abnormality. PARANASAL SINUSES / MASTOID AIR CELLS: Normal as visualized. ADDITIONAL FINDINGS: None. IMPRESSION: 1. No acute intracranial abnormality. 2. Severe microangiopathy and old large left MCA infarct with encephalomalacia Signer Name: Claudio Richter MD Signed: 04/14/2021 7:03 AM Workstation Name: [id number]
[2021-04-14 07:50] LABS: Calcium 9.5 mg/dL (8.4-10.2)
[2021-04-14 07:52] LABS: INR 0.99 (0.87-1.13)
[2021-04-14] MEDS ORDERED: SODIUM CHLORIDE 0.9% 1000 ML 1,000 ML IV ONE (07:54)
[2021-04-14 09:08] LABS: Hematocrit 39.6 % (30.3-42.9); Hemoglobin 13.3 gm/dl (10.1-14.3); Mean Corpuscular HGB Conc 34 % (30-34); Mean Corpuscular Volume 92 fl (79-97); Red Blood Count 4.33 M/mm3 (3.65-5.03)
[2021-04-14 09:20] LABS: Bilirubin,Urine NEG (Negative); Blood,Urine MOD (Negative); Color,Urine Yellow (Yellow); Mucus,Urine FEW /HPF; Urobilinogen,Urine < 2.0 mg/dL (<2.0)
[2021-04-14 09:29] LABS: WBC,Urine < 1.0 /HPF (0.0-6.0)
[2021-04-14 09:35] LABS: Basophils % (Auto) 0.3 % (0.0-1.8); Eosinophils % (Auto) 3.3 % (0.0-4.3); Lymphocytes % (Auto) 18.1 % (13.4-35.0); Monocytes % (Auto) 9.6 % (0.0-7.3); Platelet Count 213 K/mm3 (140-440)
[2021-04-14 09:36] LABS: Basophils # (Auto) 0.1 K/mm3 (0.0-0.1); Eosinophils # (Auto) 0.2 K/mm3 (0.0-0.4); Lymphocytes # (Auto) 1.4 K/mm3 (1.2-5.4); Monocytes # (Auto) 0.7 K/mm3 (0.0-0.8)
[2021-04-14 10:56] LABS: Total Cells Counted 100
--- NOTE | 2021-04-14 11:07 | History and Physical Report ---
History of Present Illness Date of examination: 04/14/21 Date of admission: 04/14/21 10:22 Chief complaint: Seizures History of present illness: Patient is 70 yo female, history of seizure disorder, stroke, diabetes, hypertension. She presented to Emergency Department with active seizures. Patient was transported by daughter in private vehicle. History obtained from medical records as atient is post-ictal and cannot provide history. The ED Physician had obtained history from daughter She stated patient has had 2 seizures in the past. States they are usually partial seizures, only causing some facial twitching. States she believes patient has been compliant with her Keppra, but she is not completely sure. Daughter reports that patient came into her room at around 5 AM due to her seizure. She then put patient into the car and drove her to the Emergency Department. Her daughter stated patient seemed to have more generalized seizure activity at this time. Daughter states patient seizures have never been this bad. She was seen and evaluated in ED and started on Keppra and Ativan iv. Currently she is postictal, sedated. Past History Past Medical History: diabetes, hypertension, hyperlipidemia, seizures, stroke Past Surgical History: Other (Unknown) Social history: full code. denies: smoking, alcohol abuse Family history: no significant family history Medications and Allergies Allergies Allergy/AdvReac Type Severity Reaction Status Date / Time No Known Allergies Allergy Verified 04/14/21 14:49 Home Medications Medication Instructions Recorded Confirmed Last Taken Type Albuterol Mdi (or & Nicu Only) 2 puff IH QID PRN 06/02/19 04/14/21 Unknown History [ProAir HFA Inhaler] AtorvaSTATin [Lipitor] 80 mg PO QHS 06/02/19 04/14/21 06/01/19 History Escitalopram [Lexapro] 20 mg PO DAILY 06/02/19 04/14/21 Unknown History Losartan [Cozaar] 25 mg PO QDAY 06/02/19 04/14/21 Unknown History carvediloL [Coreg] 6.25 mg PO BID 06/02/19 04/14/21 Unknown History Aspirin EC [Halfprin EC] 81 mg PO QDAY tablet 06/03/19 04/14/21 Unknown Rx levETIRAcetam [Keppra TAB] 750 mg PO BID #180 tablet 06/03/19 04/14/21 Unknown Rx Sulindac 150 mg PO QDAY 04/14/21 04/14/21 Unknown History Triamcinolone Aceton 0.1% (Nf) 1 applic TP BID 04/14/21 04/14/21 Unknown History [Kenalog (NF)] Review of Systems ROS unobtainable: due to mental status Exam - Physical Exam Narrative exam: Gen: Not in acute distress, lying in bed HEENT: Normocephalic, atraumatic Neck: Supple, no JVD Lungs: Clear to auscultation bilaterally, no wheeze Heart: S1 and S2 reg, no murmurs, rubs or gallop Abd:soft, non-tender, non distended, normal bowel sounds Ext: No edema, clubbing or cyanosis Neuro: Lethargic,confused, post ictal - Constitutional Vitals: Temp Pulse Resp BP Pulse Ox 94.7 F L 102 H 19 135/78 100 04/14/21 07:15 04/14/21 08:01 04/14/21 08:01 04/14/21 08:01 04/14/21 08:01 Results - Labs CBC & Chem 7: 04/14/21 07:04 04/14/21 07:04 Labs: Abnormal lab results 04/14/21 04/14/21 Range/Units 07:04 07:04 RDW 13.0 L (13.2-15.2) % Antelope % (Auto) 9.6 H (0.0-7.3) % Seg Neuts % (Manual) 83.0 H (40.0-70.0) % Lymphocytes % (Manual) 11.0 L (13.4-35.0) % Eosinophils % (Manual) 6.0 H (0.0-4.3) % Lymphocytes # (Manual) 0.8 L (1.2-5.4) K/mm3 Eosinophils # (Manual) 0.5 H (0.0-0.4) K/mm3 Carbon Dioxide 17 L (22-30) mmol/L BUN 43 H (7-17) mg/dL Creatinine 1.5 H (0.6-1.2) mg/dL Glucose 160 H (65-100) mg/dL Assessment and Plan Seizures Place on observation Seizure precautions Neurochecks q 4 hr Keppra 1000mg iv q 12 h Ativan iv q 1h prn Consult Neurology Diabetes mellitus type 2 Accucheck qac and hs Hypertension Monitor BP Hyperlipidemia Resume statin History of stroke DVT prophylaxis with Heparin
[2021-04-14] MEDS ORDERED: ACETAMINOPHEN 325 MG TAB PO PRN (12:00)
[2021-04-14] MEDS ORDERED: MORPHINE 4 MG/1 ML INJ IV PRN (12:00)
[2021-04-14] MEDS ORDERED: MORPHINE 2 MG/1 ML INJ IV PRN (12:00)
[2021-04-14] MEDS ORDERED: ONDANSETRON 4 MG/2 ML INJ IV PRN (12:00)
[2021-04-14] MEDS ORDERED: SODIUM CHLORIDE 0.9% 1000 ML 1,000 ML IV SCH (12:00)
--- NOTE | 2021-04-14 14:52 | Consultation ---
History of Present Illness Consult date: 04/14/21 Reason for Consult: Seizure Chief complaint: Seizure History of present illness: 70 yo female with seizure disorder, htn, dm, hx of cva, presenting with witnessed seizure activity that began as facial twitching w/ grunting but then generalized up arrival to the ED with right gaze deviation. She was given Ativan 2 mg and is on Keppra at home. Per RN, no more seizure activity and the patient is currently oriented and following commands. Past History Past Medical History: diabetes, hypertension, seizures, stroke Past Surgical History: Other (Unknown) Social history: full code. denies: smoking Family history: no significant family history Medications and Allergies Allergies Allergy/AdvReac Type Severity Reaction Status Date / Time No Known Allergies Allergy Verified 04/14/21 14:49 Home Medications Medication Instructions Recorded Confirmed Last Taken Type Albuterol Mdi (or & Nicu Only) 2 puff IH QID PRN 06/02/19 04/14/21 Unknown History [ProAir HFA Inhaler] AtorvaSTATin [Lipitor] 80 mg PO QHS 06/02/19 04/14/21 06/01/19 History Escitalopram [Lexapro] 20 mg PO DAILY 06/02/19 04/14/21 Unknown History Losartan [Cozaar] 25 mg PO QDAY 06/02/19 04/14/21 Unknown History carvediloL [Coreg] 6.25 mg PO BID 06/02/19 04/14/21 Unknown History Aspirin EC [Halfprin EC] 81 mg PO QDAY tablet 06/03/19 04/14/21 Unknown Rx levETIRAcetam [Keppra TAB] 750 mg PO BID #180 tablet 06/03/19 04/14/21 Unknown Rx Sulindac 150 mg PO QDAY 04/14/21 04/14/21 Unknown History Triamcinolone Aceton 0.1% (Nf) 1 applic TP BID 04/14/21 04/14/21 Unknown History [Kenalog (NF)] Active Meds: Active Medications Acetaminophen (Acetaminophen 325 Mg Tab) 650 mg PO Q4H PRN PRN Reason: Pain MILD(1-3)/Fever >100.5/HENAO Sodium Chloride (Nacl 0.9% 1000 Ml) 1,000 mls @ 75 mls/hr IV DIRECT JACQUES Levetiracetam 1,000 mg/ (Dextrose) 110 mls @ 400 mls/hr IV Q12H JACQUES Morphine Sulfate (Morphine 2 Mg/1 Ml Inj) 2 mg IV Q4H PRN PRN Reason: Pain, Moderate (4-6) Morphine Sulfate (Morphine 4 Mg/1 Ml Inj) 4 mg IV Q4H PRN PRN Reason: Pain , Severe (7-10) Ondansetron HCl (Ondansetron 4 Mg/2 Ml Inj) 4 mg IV Q8H PRN PRN Reason: Nausea And Vomiting Sodium Chloride (Sodium Chloride 0.9% 10 Ml Flush Syringe) 10 ml IV BID JACQUES Sodium Chloride (Sodium Chloride 0.9% 10 Ml Flush Syringe) 10 ml IV PRN PRN PRN Reason: LINE FLUSH Physical Examination - Vital Signs Vital Signs: Vital Signs Pulse Resp BP Pulse Ox 113 H 21 218/117 99 04/14/21 06:16 04/14/21 06:16 04/14/21 06:16 04/14/21 06:16 Results - Laboratory Findings CBC and BMP: 04/14/21 07:04 04/14/21 07:04 Abnormal Lab Findings: Abnormal Labs 04/14/21 04/14/21 07:04 07:04 RDW 13.0 L [place] % (Auto) 9.6 H Seg Neuts % (Manual) 83.0 H Lymphocytes % (Manual) 11.0 L Eosinophils % (Manual) 6.0 H Lymphocytes # (Manual) 0.8 L Eosinophils # (Manual) 0.5 H Carbon Dioxide 17 L BUN 43 H Creatinine 1.5 H Glucose 160 H Assessment and Plan 70 yo female with seizure disorder, htn, dm, hx of cva, presenting with witnessed seizure activity that began as facial twitching w/ grunting but then generalized up arrival to the ED with right gaze deviation. She was given Ati van 2 mg and is on Keppra at home. Noted currently wit a proonged postictal state. 1. Seizure d/o - Keppra 1000 mg iv/po bid; mri brain w/ wo contrast; aggressive treatment of underlying infectious/infalmmatory/metabolic or electrolyte derangments per primary team; seizure precautions; seizure restrictions. 2. Hx of CVA - antiplatelet/statin thearpy if hx of ischemic stroke. 3. HTN - aim for normotension at present. 4. DM - aim for euglycemia. 5. Acute Renal Insufficiency - treatment per primary team. Jacobo Kitchen MD Neurology
[2021-04-14] MEDS ORDERED: ALBUTEROL 8.5 GM MDI INHALATION IH PRN (16:49)
[2021-04-14] MEDS ORDERED: ALBUTEROL 2.5 MG/3 ML NEBU IH PRN (17:22)
[2021-04-14] MEDS: LOSARTAN 25 MG TAB PO SCH (17:59)
[2021-04-14] MEDS: ASPIRIN EC 81 MG TAB PO SCH (17:59)
[2021-04-14] MEDS: levETIRAcetam 1,000 MG in DEXTROSE 5% IN WATER 100 ML IV SCH (18:16)
[2021-04-15 05:18] LABS: Eosinophils # (Auto) 0.2 K/mm3 (0.0-0.4); Eosinophils % (Auto) 3.2 % (0.0-4.3); Hematocrit 39.5 % (30.3-42.9); Hemoglobin 13.4 gm/dl (10.1-14.3); Lymphocytes # (Auto) 1.4 K/mm3 (1.2-5.4); Lymphocytes % (Auto) 26.9 % (13.4-35.0); Mean Corpuscular HGB Conc 34 % (30-34); Mean Corpuscular Volume 90 fl (79-97); Monocytes # (Auto) 0.7 K/mm3 (0.0-0.8); Monocytes % (Auto) 13.9 % (0.0-7.3); Platelet Count 184 K/mm3 (140-440); Red Cell Distribution Width 12.7 % (13.2-15.2)
[2021-04-15 05:54] LABS: Calcium 9.4 mg/dL (8.4-10.2)
[2021-04-15] MEDS: carvediloL 6.25 MG TAB PO SCH ×3 (06:25→22:25)
[2021-04-15] MEDS: HEPARIN 5,000 UNIT/1 ML VIAL SUB-Q SCH ×4 (06:30→22:26)
[2021-04-15] MEDS: levETIRAcetam 1,000 MG in DEXTROSE 5% IN WATER 100 ML IV SCH (06:54)
[2021-04-15] MEDS: ASPIRIN EC 81 MG TAB PO SCH (10:10)
[2021-04-15] MEDS: LOSARTAN 25 MG TAB PO SCH (10:10)
[2021-04-15] MEDS: ESCITALOPRAM 10 MG TAB PO SCH (10:10)
--- NOTE | 2021-04-15 10:30 | Electrocardiograph Report ---
[facility] Test Date: 2021-04-14 Test Time: 06:05:57 Pat Name: PITO MCNEILL Department: Room: [facility] Gender: F Monkey Trainer: ÁNGEL : 1950 Requested By: MONALISA GEORGE Order Number: [id number] Reading MD: Calvin Perez Measurements Intervals [place] Rate: 115 P: 42 [place]: 180 QRS: -2 QRSD: 90 T: -8 QT: 330 QTc: 458 Interpretive Statements Sinus tachycardia Probable left atrial enlargement Low voltage, precordial leads Anteroseptal infarct, old No previous ECG available for comparison Electronically Signed On 04-15-2021 10:30:02 EDT by Calvin Perez
--- NOTE | 2021-04-15 11:58 | Progress Note ---
Assessment and Plan Assessment and plan: 70 yo female with seizure disorder, htn, dm, hx of cva, presenting with witnessed seizure activity that began as facial twitching w/ grunting but then generalized up arrival to the ED with right gaze deviation. She was given Ativan 2 mg and is on Keppra at home. The patient has had no more seizure act ivity since admission. The patient is currently oriented and following commands. Seizure disorder. History of CVA Hypertension Diabetes mellitus type 2 Acute kidney injury. Etiology secondary to vasomotor nephropathy. 04/15/2021. Patient had Keppra increased to 1000 mg IV twice daily. Patient has had no new seizure activity. Await MRI and EEG per neurology recommendations. Continue SSRI and Accu-Cheks History Interval history: No new issues overnight. Hospitalist Physical - Constitutional Vitals: Temp Pulse Resp BP Pulse Ox 94.7 F L 74 15 124/78 98 04/14/21 07:15 04/15/21 11:01 04/15/21 11:01 04/15/21 11:01 04/15/21 11:34 General appearance: Present: no acute distress, well-nourished - EENT Eyes: Present: PERRL, EOM intact ENT: hearing intact, clear oral mucosa, dentition normal - Neck Neck: Present: supple, normal ROM - Respiratory Respiratory effort: normal Respiratory: bilateral: CTA - Cardiovascular Rhythm: regular Heart Sounds: Present: S1 & S2. Absent: gallop, rub - Extremities Extremities: no ischemia, No edema, Full ROM - Abdominal General gastrointestinal: soft, non-tender, non-distended, normal bowel sounds - Integumentary Integumentary: Present: clear, warm, dry - Neurologic Neurologic: CNII-XII intact, moves all extremities Results - Labs CBC & Chem 7: 04/15/21 05:03 04/15/21 05:03 Labs: Laboratory Last Values WBC 5.2 K/mm3 (4.5-11.0) 04/15/21 05:03 RBC 4.40 M/mm3 (3.65-5.03) 04/15/21 05:03 Hgb 13.4 gm/dl (10.1-14.3) 04/15/21 05:03 Hct 39.5 % (30.3-42.9) 04/15/21 05:03 MCV 90 fl (79-97) 04/15/21 05:03 MCH 30 pg (28-32) 04/15/21 05:03 MCHC 34 % (30-34) 04/15/21 05:03 RDW 12.7 % (13.2-15.2) L 04/15/21 05:03 Plt Count 184 K/mm3 (140-440) 04/15/21 05:03 Lymph % (Auto) 26.9 % (13.4-35.0) 04/15/21 05:03 [place] % (Auto) 13.9 % (0.0-7.3) H 04/15/21 05:03 Eos % (Auto) 3.2 % (0.0-4.3) 04/15/21 05:03 Baso % (Auto) 1.0 % (0.0-1.8) 04/15/21 05:03 Lymph # (Auto) 1.4 K/mm3 (1.2-5.4) 04/15/21 05:03 [place] # (Auto) 0.7 K/mm3 (0.0-0.8) 04/15/21 05:03 Eos # (Auto) 0.2 K/mm3 (0.0-0.4) 04/15/21 05:03 Baso # (Auto) 0.0 K/mm3 (0.0-0.1) 04/15/21 05:03 Add Manual Diff Complete 04/14/21 07:04 Total Counted 100 04/14/21 07:04 Seg Neutrophils % 55.0 % (40.0-70.0) 04/15/21 05:03 Seg Neuts % (Manual) 83.0 % (40.0-70.0) H 04/14/21 07:04 Lymphocytes % (Manual) 11.0 % (13.4-35.0) L 04/14/21 07:04 Eosinophils % (Manual) 6.0 % (0.0-4.3) H 04/14/21 07:04 Nucleated RBC % Not Reportable 04/14/21 07:04 Seg Neutrophils # 2.9 K/mm3 (1.8-7.7) 04/15/21 05:03 Seg Neutrophils # Man 6.2 K/mm3 (1.8-7.7) 04/14/21 07:04 Band Neutrophils # 0.0 K/mm3 04/14/21 07:04 Lymphocytes # (Manual) 0.8 K/mm3 (1.2-5.4) L 04/14/21 07:04 Abs React Lymphs (Man) 0.0 K/mm3 04/14/21 07:04 Monocytes # (Manual) 0.0 K/mm3 (0.0-0.8) 04/14/21 07:04 Eosinophils # (Manual) 0.5 K/mm3 (0.0-0.4) H 04/14/21 07:04 Basophils # (Manual) 0.0 K/mm3 (0.0-0.1) 04/14/21 07:04 Metamyelocytes # 0.0 K/mm3 04/14/21 07:04 Myelocytes # 0.0 K/mm3 04/14/21 07:04 Promyelocytes # 0.0 K/mm3 04/14/21 07:04 Blast Cells # 0.0 K/mm3 04/14/21 07:04 WBC Morphology Not Reportable 04/14/21 07:04 Hypersegmented Neuts Not Reportable 04/14/21 07:04 Hyposegmented Neuts Not Reportable 04/14/21 07:04 Hypogranular Neuts Not Reportable 04/14/21 07:04 Smudge Cells Not Reportable 04/14/21 07:04 Toxic Granulation Not Reportable 04/14/21 07:04 Toxic Vacuolation Not Reportable 04/14/21 07:04 Dohle Bodies Not Reportable 04/14/21 07:04 Pelger-Huet Anomaly Not Reportable 04/14/21 07:04 Edith Rods Not Reportable 04/14/21 07:04 Platelet Estimate Not Reportable 04/14/21 07:04 Clumped Platelets Not Reportable 04/14/21 07:04 Plt Clumps, EDTA Not Reportable 04/14/21 07:04 Large Platelets Not Reportable 04/14/21 07:04 Giant Platelets Not Reportable 04/14/21 07:04 Platelet Satelliting Not Reportable 04/14/21 07:04 Plt Morphology Comment Not Reportable 04/14/21 07:04 RBC Morphology Not Reportable 04/14/21 07:04 Dimorphic RBCs Not Reportable 04/14/21 07:04 Polychromasia Not Reportable 04/14/21 07:04 Hypochromasia Not Reportable 04/14/21 07:04 Poikilocytosis Not Reportable 04/14/21 07:04 Anisocytosis Not Reportable 04/14/21 07:04 Microcytosis Not Reportable 04/14/21 07:04 Macrocytosis Not Reportable 04/14/21 07:04 Spherocytes Not Reportable 04/14/21 07:04 Pappenheimer Bodies Not Reportable 04/14/21 07:04 Sickle Cells Not Reportable 04/14/21 07:04 Target Cells Not Reportable 04/14/21 07:04 Tear Drop Cells Not Reportable 04/14/21 07:04 Ovalocytes Not Reportable 04/14/21 07:04 Helmet Cells Not Reportable 04/14/21 07:04 Dickerson-Carrick Bodies Not Reportable 04/14/21 07:04 [place] Rings Not Reportable 04/14/21 07:04 [place] Cells Not Reportable 04/14/21 07:04 Bite Cells Not Reportable 04/14/21 07:04 Crenated Cell Not Reportable 04/14/21 07:04 Elliptocytes Not Reportable 04/14/21 07:04 Acanthocytes (Spur) Not Reportable 04/14/21 07:04 Rouleaux Not Reportable 04/14/21 07:04 Hemoglobin C Crystals Not Reportable 04/14/21 07:04 Schistocytes Not Reportable 04/14/21 07:04 Malaria parasites Not Reportable 04/14/21 07:04 Lucio Bodies Not Reportable 04/14/21 07:04 Hem Pathologist Commnt No 04/14/21 07:04 PT 13.6 Sec. (12.2-14.9) 04/14/21 07:04 INR 0.99 (0.87-1.13) 04/14/21 07:04 APTT 26.0 Sec. (24.2-36.6) 04/14/21 07:04 Sodium 138 mmol/L (137-145) 04/15/21 05:03 Potassium 4.2 mmol/L (3.6-5.0) 04/15/21 05:03 Chloride 107.0 mmol/L (98-107) 04/15/21 05:03 Carbon Dioxide 18 mmol/L (22-30) L 04/15/21 05:03 Anion Gap 17 mmol/L 04/15/21 05:03 BUN 24 mg/dL (7-17) H 04/15/21 05:03 Creatinine 1.2 mg/dL (0.6-1.2) 04/15/21 05:03 Estimated GFR 54 ml/min 04/15/21 05:03 BUN/Creatinine Ratio 20 % 04/15/21 05:03 Glucose 98 mg/dL (65-100) 04/15/21 05:03 POC Glucose 78 mg/dL (70-105) 04/14/21 17:18 Calcium 9.4 mg/dL (8.4-10.2) 04/15/21 05:03 Urine Color Yellow (Yellow) 04/14/21 Unknown Urine Turbidity Slightly-cloudy (Clear) 04/14/21 Unknown Urine pH 5.0 (5.0-7.0) 04/14/21 Unknown Ur Specific [place] 1.015 (1.003-1.030) 04/14/21 Unknown Urine Protein 100 mg/dl mg/dL (Negative) 04/14/21 Unknown Urine Glucose (UA) Neg mg/dL (Negative) 04/14/21 Unknown Urine Ketones Neg mg/dL (Negative) 04/14/21 Unknown Urine Blood Mod (Negative) 04/14/21 Unknown Urine Nitrite Neg (Negative) 04/14/21 Unknown Urine Bilirubin Neg (Negative) 04/14/21 Unknown Urine Urobilinogen < 2.0 mg/dL (<2.0) 04/14/21 Unknown Ur Leukocyte Esterase Neg (Negative) 04/14/21 Unknown Urine WBC (Auto) < 1.0 /HPF (0.0-6.0) 04/14/21 Unknown Urine RBC (Auto) 12.0 /HPF (0.0-6.0) 04/14/21 Unknown U Epithel Cells (Auto) 6.0 /HPF (0-13.0) 04/14/21 Unknown Uric Acid Crystals 2+ 04/14/21 Unknown Urine Mucus Few /HPF 04/14/21 Unknown Active Medications - Current Medications Current Medications: Generic Name Dose Route Start Last Admin Trade Name Freq PRN Reason Stop Dose Admin Acetaminophen 650 mg 04/14/21 12:00 Acetaminophen 325 Mg Tab PO Q4H PRN Pain MILD(1-3)/Fever >100.5/HENAO Albuterol 2.5 mg 04/14/21 17:22 Albuterol 2.5 Mg/3 Ml Nebu IH QIDRT PRN Shortness Of Breath Aspirin 81 mg 04/14/21 17:00 04/14/21 17:59 Aspirin Ec 81 Mg Tab PO 81 mg QDAY JACQUES Administration Atorvastatin Calcium 80 mg 04/14/21 22:00 04/15/21 03:30 Atorvastatin 40 Mg Tab PO Not Given QHS JACQUES Carvedilol 6.25 mg 04/14/21 22:00 04/15/21 06:25 Carvedilol 6.25 Mg Tab PO Not Given BID [facility] Escitalopram Oxalate 20 mg 04/15/21 10:00 Escitalopram 10 Mg Tab PO DAILY [facility] Heparin Sodium (Porcine) 5,000 unit 04/14/21 22:00 04/15/21 06:31 Heparin 5,000 Unit/1 Ml Vial SUB-Q Not Given Q8HR [facility] Sodium Chloride 1,000 mls @ 75 mls/hr 04/14/21 12:00 Nacl 0.9% 1000 Ml IV DIRECT [facility] Levetiracetam 1,000 mg/ 110 mls @ 400 mls/hr 04/14/21 18:00 04/15/21 06:54 Dextrose IV 400 mls/hr Q12H JACQUES Administration Losartan Potassium 25 mg 04/14/21 17:00 04/14/21 17:59 Losartan 25 Mg Tab PO 25 mg QDAY JACQUES Administration Morphine Sulfate 2 mg 04/14/21 12:00 Morphine 2 Mg/1 Ml Inj IV Q4H PRN Pain, Moderate (4-6) Morphine Sulfate 4 mg 04/14/21 12:00 Morphine 4 Mg/1 Ml Inj IV Q4H PRN Pain , Severe (7-10) Ondansetron HCl 4 mg 04/14/21 12:00 Ondansetron 4 Mg/2 Ml Inj IV Q8H PRN Nausea And Vomiting Sodium Chloride 10 ml 04/14/21 22:00 Sodium Chloride 0.9% 10 Ml Flush Syringe IV BID JACQUES Sodium Chloride 10 ml 04/14/21 11:07 Sodium Chloride 0.9% 10 Ml Flush Syringe IV PRN PRN LINE FLUSH
--- NOTE | 2021-04-15 17:15 | Magnetic Resonance Report ---
. MRI BRAIN WITHOUT AND WITH CONTRAST INDICATION / CLINICAL INFORMATION: seizures, WEAKNESS Patient motion, best possible exam.. TECHNIQUE: Multiplanar, multisequence MR images of the brain were obtained. COMPARISON: Previous brain MRI on 06/03/[address] on 04/14/2021 FINDINGS: BRAIN / INTRACRANIAL CONTENTS: No acute ischemia, acute hemorrhage, mass effect, midline shift, or hy drocephalus. Stable chronic infarcts in the left MCA territory. Stable severe chronic small vessel i schemic change in the cerebral white matter. No abnormal enhancement. CRANIOCERVICAL JUNCTION: No significant abnormality. VASCULAR FLOW-VOIDS: No significant abnormality. ORBITS: No significant abnormality of visualized orbits. SINUSES / MASTOIDS: No significant abnormality of visualized sinuses and mastoid air cells. ADDITIONAL FINDINGS: None. IMPRESSION: 1. No acute findings or adverse change from prior exams. Signer Name: Linus Alcazar MD Signed: 04/15/2021 5:10 PM Workstation Name: [id number]
[2021-04-16] MEDS: levETIRAcetam 1,000 MG in DEXTROSE 5% IN WATER 100 ML IV SCH ×2 (05:10→05:11)
[2021-04-16] MEDS: HEPARIN 5,000 UNIT/1 ML VIAL SUB-Q SCH ×2 (05:11→13:22)
--- NOTE | 2021-04-16 08:21 | Discharge Summary ---
Providers - Providers Date of Admission: 04/14/21 10:22 Date of discharge: 04/16/21 Attending physician: JT MONTANA 04/14/21 13:43 Consult to Physician [CONS] Routine Comment: Consulting Provider: TORO COYNE Physician Instructions: Reason For Exam: Seizures Hospitalization Reason for admission: sz Condition: Stable Hospital course: 1 yo female with seizure disorder, htn, dm, hx of cva, presenting with witnessed seizure activity that began as facial twitching w/ grunting but then generalized up arrival to the ED with right gaze deviation. She was given Ativan 2 mg and is on Keppra at home. The patient was admitted with diagnosis of seizure disorder, history of CVA, hypertension, diabetes mellitus type 2, acute kidney injury secondary to vasomotor nephropathy. The patient has had no more seizure activity since admission. The patient is currently oriented and following commands. The patient received IV fluid hydration with improvement in her creatinine to normal range of 1.2. The patient was seen by neurology in consultation who increased her Keppra to 1000 mg IV twice daily. Neurology also recommended MRI which was found to be negative. Patient will have EEG completed today and follow-up with results as an outpatient. Patient is to follow-up with neurology. No driving until follow-up with PCP or neurology. Dedicated discharge time 35 minutes Disposition: 01 HOME / SELF CARE / HOMELESS Final Discharge Diagnosis (Prints w/discharge instructions): Seizure disorder, history of CVA, hypertension, diabetes mellitus type 2, acute kidney injury, vasomotor nephropathy Core Measure Documentation - Palliative Care Palliative Care/ Comfort Measures: Not Applicable - Core Measures Any of the following diagnoses?: none Exam - Constitutional Vitals: Temp Pulse Resp BP Pulse Ox 98.1 F 90 24 131/72 97 04/16/21 07:55 04/16/21 04:09 04/16/21 07:55 04/16/21 07:55 04/16/21 04:09 General appearance: Present: no acute distress, well-nourished - EENT Eyes: Present: PERRL ENT: hearing intact, clear oral mucosa - Neck Neck: Present: supple, normal ROM - Respiratory Respiratory effort: normal Respiratory: bilateral: CTA - Cardiovascular Heart Sounds: Present: S1 & S2. Absent: rub, click - Extremities Extremities: pulses symmetrical, No edema Peripheral Pulses: within normal limits - Abdominal General gastrointestinal: Present: soft, non-tender, non-distended, normal bowel sounds Female genitourinary: Present: normal - Integumentary Integumentary: Present: clear, warm, dry - Musculoskeletal Musculoskeletal: gait normal, strength equal bilaterally - Psychiatric Psychiatric: appropriate mood/affect, intact judgment & insight - Neurologic Neurologic: CNII-XII intact, moves all extremities Plan Activity: advance as tolerated, no driving until cleared by PCP (And neurology) Weight Bearing Status: Weight Bear as Tolerated Diet: regular Additional Instructions: No driving until cleared by neurology and PCP Follow up with: SONJA ECHEVERRIA [Other] - 3-5 Days MARY PEDRAZA MD [Staff Physician] - 7 Days Prescriptions: carvediloL [Coreg] 6.25 mg PO BID #60 Losartan [Cozaar] 25 mg PO QDAY #30 Aspirin EC [Halfprin EC] 81 mg PO QDAY #30 tablet levETIRAcetam [Keppra TAB] 1,000 mg PO BID #60 tab Escitalopram [Lexapro] 20 mg PO DAILY #30 AtorvaSTATin [Lipitor] 80 mg PO QHS #30
[2021-04-16] MEDS: carvediloL 6.25 MG TAB PO SCH (09:20)
[2021-04-16] MEDS: ASPIRIN EC 81 MG TAB PO SCH (09:20)
[2021-04-16] MEDS: ESCITALOPRAM 10 MG TAB PO SCH (09:20)
[2021-04-16] MEDS: LOSARTAN 25 MG TAB PO SCH (09:21)
[2021-04-16 17:41] VITALS: BP 130/74
== END 2021-04-16 17:55 | disposition home or self-care (01) ==
LOC: ED 05:55 → 4A 10:22
PROVIDERS: ADMIT Internal Medicine; ATTEND Hospitalist
DX: R56.9 Unspecified convulsions (principal); I10 Essential (primary) hypertension; N17.9 Acute kidney failure, unspecified; E11.9 Type 2 diabetes mellitus without complications; E78.5 Hyperlipidemia, unspecified; N28.9 Disorder of kidney and ureter, unspecified; Z86.73 Personal history of transient ischemic attack (TIA), and cerebral infarction without residual deficits; Z79.899 Other long term (current) drug therapy; Z98.890 Other specified postprocedural states; Z79.82 Long term (current) use of aspirin
CPT/HCPCS: 36415; 70450; 70553; 80048; 81001; 82962; 85025; 85610; 85730; 93005; 95819; 96361; 96365; 96366; 96372; 99285; A9270; A9575; G0378; J1644; J1953; J2060; J7030; 85007